=== PATIENT | female | born 1955 | race African-American/Black ===

== ENCOUNTER 2018-04-15 19:20 | Emergency (ER) | payer MEDICAID ==
[~2018-04-15] VITALS: Ht 160 cm; Wt 68.5 kg
[~2018-04-15 19:20] MED LIST: ASPI81CH43 PO; BENA20TA70 PO
[2018-04-15 19:32] VITALS: BP 129/80
[2018-04-15 20:08] LABS: Basophils # (auto) 0.1 uL; Eosinophils # (auto) 0.2 uL; Lymphocytes # (auto) 2.2 uL; Mean Corpuscular Hemoglobin 29.9 pg (28.0-32.0)
[2018-04-15 20:10] LABS: Basophils % (auto) 1.1 % (0.0-2.0); Eosinophils % (auto) 2.2 % (0.0-7.0); Hematocrit 32.6 % (36.0-46.0); Hemoglobin 11.1 g/dL (12.2-16.2); Lymphocytes % (auto) 23.7 % (10.0-50.0); Mean Corpuscular Hgb Conc. 33.9 g/dL (32.0-36.0); Mean Corpuscular Volume 88.1 fL (80.0-100.0); Monocytes # (auto) 0.4 uL; Monocytes % (auto) 4.4 % (0.0-12.0); Neutrophils # (auto) 6.4 uL; Neutrophils % (auto) 68.6 % (37.0-80.0); Nucleated Red Blood Cells % 0.2 %; Red Cell Distribution Width 14.5 % (11.8-14.3); White Blood Cell 9.4 10^3/uL (4.4-10.8)
[2018-04-15 20:17] LABS: Platelet Count (auto) 1087 10^3/uL (140-450)
[2018-04-15 20:25] LABS: Albumin 3.1 g/dL (3.4-5.0); BUN/Creatinine Ratio 8.2; Potassium 3.8 mmol/L (3.5-5.1)
[2018-04-15 20:38] LABS: Bilirubin, Total 0.2 mg/dL (0.2-1.0); Total Protein 6.8 g/dL (6.4-8.2)
== END 2018-04-15 23:04 | disposition left against medical advice (07) ==
LOC: ER 19:34
DX: R73.9 Hyperglycemia, unspecified (principal); Z53.21 Procedure and treatment not carried out due to patient leaving prior to being seen by health care provider
CPT/HCPCS: 36415; 80053; 85025

== ENCOUNTER 2018-07-10 21:17 | Inpatient (IN) | payer MEDICAID ==
[~2018-07-10] VITALS: Ht 160 cm; Wt 98.2 kg
[2018-07-10 22:25] LABS: Hematocrit 39.7 % (36.0-46.0); Hemoglobin 13.3 g/dL (12.2-16.2); Monocytes # (auto) 0.3 uL; Monocytes % (auto) 4.3 % (0.0-12.0); Nucleated Red Blood Cells % 0.1 %; Red Blood Cells 4.42 10^6/uL (4.0-5.20)
[2018-07-10 22:27] LABS: Basophils # (auto) 0 uL; Basophils % (auto) 0.6 % (0.0-2.0); Eosinophils # (auto) 0.1 uL; Eosinophils % (auto) 2.5 % (0.0-7.0); Lymphocytes # (auto) 2.4 uL; Lymphocytes % (auto) 40.4 % (10.0-50.0); Mean Corpuscular Hemoglobin 30.1 pg (28.0-32.0); Mean Corpuscular Hgb Conc. 33.5 g/dL (32.0-36.0); Neutrophils # (auto) 3.1 uL; Neutrophils % (auto) 52.2 % (37.0-80.0); Platelet Count (auto) 500 10^3/uL (140-450); White Blood Cell 5.9 10^3/uL (4.4-10.8)
[2018-07-10 22:30] LABS: Red Cell Distribution Width 23.7 % (11.8-14.3)
[2018-07-10 23:00] LABS: INR 0.96 (0.9-1.15); Partial Thromboplastin Time 26.5 sec (23.78-33.04); Prothrombin Time 10.3 sec (9.27-12.13)
[2018-07-11] MEDS ORDERED: GABAPENTIN 300 MG CAP PO ONE
[2018-07-11 00:14] LABS: Alanine Aminotransferase 24 U/L (13-56); Albumin 3.6 g/dL (3.4-5.0); Anion Gap 10 (5-15); Aspartate Aminotransferase 17 U/L (15-37); BUN/Creatinine Ratio 17.1; Blood Urea Nitrogen 20 mg/dL (7-18); Calcium 8.6 mg/dL (8.5-10.1); Carbon Dioxide 21 mmol/L (21-32); Chloride 108 mmol/L (98-107); GFR African American 60 mL/min; GFR Non-African American 50 mL/min; Glucose 177 mg/dL (74-106); Magnesium 1.7 mg/dL (1.6-2.6); Potassium 3.8 mmol/L (3.5-5.1); Sodium 139 mmol/L (136-145)
[2018-07-11 00:17] LABS: Alkaline Phosphatase 49 U/L (45-117); Bilirubin, Total 0.2 mg/dL (0.2-1.0); Total Protein 7.6 g/dL (6.4-8.2)
[2018-07-11] MEDS ORDERED: ONDANSETRON HCL 4 MG/2 ML VIAL IV PRN (04:30)
[2018-07-11] MEDS ORDERED: ACETAMINOPHEN 500 MG TAB PO PRN (04:30)
[2018-07-11] MEDS ORDERED: DEXTROSE (50%) 50ML SYRG IV PRN (04:30)
[2018-07-11] MEDS ORDERED: LORazepam 2MG/ML-1ML VIAL IV ONE (05:00)
[2018-07-11 05:23] LABS: Eosinophils # (auto) 0.1 uL; Lymphocytes # (auto) 1.7 uL; Monocytes # (auto) 0.3 uL; Monocytes % (auto) 4.4 % (0.0-12.0)
[2018-07-11 05:24] LABS: Basophils # (auto) 0.1 uL; Basophils % (auto) 0.7 % (0.0-2.0); Eosinophils % (auto) 1.1 % (0.0-7.0); Hematocrit 38.3 % (36.0-46.0); Hemoglobin 12.8 g/dL (12.2-16.2); Lymphocytes % (auto) 23.8 % (10.0-50.0); Mean Corpuscular Hemoglobin 30.3 pg (28.0-32.0); Mean Corpuscular Hgb Conc. 33.5 g/dL (32.0-36.0); Mean Corpuscular Volume 90.4 fL (80.0-100.0); Neutrophils # (auto) 5.1 uL; Platelet Count (auto) 440 10^3/uL (140-450); Red Blood Cells 4.24 10^6/uL (4.0-5.20); White Blood Cell 7.3 10^3/uL (4.4-10.8)
[2018-07-11] MEDS ORDERED: LORazepam 2MG/ML-1ML VIAL IV PRN (05:30)
[2018-07-11 05:43] LABS: BUN/Creatinine Ratio 20.8; Calcium 8.7 mg/dL (8.5-10.1); Potassium 5.1 mmol/L (3.5-5.1)
[2018-07-11] MEDS: ACCU-CHEK COMFORT CURVE STRIP VI SCH ×4 (07:00→21:58)
[2018-07-11] MEDS: InsuLIN REG 1unit/0.01ml Soln (100units/ml) SC SCH ×4 (07:00→21:58)
[2018-07-11 09:07] LABS: Urine WBC None Seen /hpf (0 - 5)
[2018-07-11 09:34] LABS: Urine Bacteria NONE SEEN /hpf (None Seen); Urine Blood Negative /uL (Negative); Urine Specific Gravity 1.009 (1.001-1.035)
[2018-07-11] MEDS: BENAZEPRIL HCL 10 MG TAB PO SCH (09:50)
[2018-07-11] MEDS: FAMOTIDINE 20 MG TAB PO SCH (09:50)
[2018-07-11 09:59] LABS: Amphetamine Screen, Urine NEGATIVE (NEGATIVE); Barbiturate Scree,Urine NEGATIVE (NEGATIVE); Benzodiazephine Screen, Urine NEGATIVE (NEGATIVE); Cocaine Screen, Urine NEGATIVE (NEGATIVE); Opiate Scree,Urine NEGATIVE (NEGATIVE); Phencyclidine Screen, Urine NEGATIVE (NEGATIVE)
[2018-07-11] MEDS ORDERED: ASPirin-EC 81 mg tab PO SCH (10:00)
[2018-07-11 10:12] LABS: Cannabinoid Screen, Urine POSITIVE (NEGATIVE)
[2018-07-11] MEDS: HYDROcodone-ACET 5/325MG TAB PO PRN ×2 (10:51→20:26)
[2018-07-11] MEDS ORDERED: SODIUM CHLORIDE 0.9% 1,000 ML IV ONE (13:45)
[2018-07-11 17:00] VITALS: BP 107/64
--- NOTE | 2018-07-11 17:05 | NUR ---
Med Surg admit from [facility] admitted to Med Surg unit after SBAR received. Patient oriented to Lexie Watters RN, unit, room, bed, and unit policies regarding patient care and visiting hours. Patient placed on bedside oxygen when needed, weighed by bed scale and encouraged to call if she needs something. All questions and concerns addressed, patient verbalized understanding. Note: Patient is alert, oriented x4. No acute distress noted.
[2018-07-11] MEDS: guaiFENesin-DM 100/10mg/5ml SYR PO PRN (17:26)
[2018-07-11] MEDS: RIVAROXABAN 20 MG TAB PO SCH (17:29)
--- NOTE | 2018-07-11 17:29 | NUR ---
Patient refused the Xarelto, stated she had it this morning.
[2018-07-11] MEDS ORDERED: HYDR-4683 PO (17:45)
[2018-07-11] MEDS ORDERED: RIVA20TA PO (17:45)
[2018-07-11] MEDS ORDERED: GABA300C10 PO (17:45)
[2018-07-11] MEDS ORDERED: RIVAROXABAN 20 MG TAB PO SCH (18:00)
[2018-07-11 20:00] VITALS: BP 126/71
[2018-07-11 22:00] VITALS: BP 126/71
[2018-07-11] MEDS ORDERED: ATORVASTATIN 20 MG TAB PO SCH (22:00)
[2018-07-12 05:00] VITALS: BP 154/84
[2018-07-12] MEDS: InsuLIN REG 1unit/0.01ml Soln (100units/ml) SC SCH ×3 (06:05→17:35)
[2018-07-12] MEDS: ACCU-CHEK COMFORT CURVE STRIP VI SCH ×3 (06:06→17:48)
[2018-07-12 07:07] LABS: Basophils # (auto) 0 uL; Basophils % (auto) 0.8 % (0.0-2.0); Eosinophils # (auto) 0.2 uL; Eosinophils % (auto) 3.1 % (0.0-7.0); Hematocrit 38.2 % (36.0-46.0); Hemoglobin 12.8 g/dL (12.2-16.2); Lymphocytes # (auto) 2.3 uL; Lymphocytes % (auto) 39.1 % (10.0-50.0); Mean Corpuscular Hemoglobin 30.4 pg (28.0-32.0); Mean Corpuscular Hgb Conc. 33.5 g/dL (32.0-36.0); Mean Corpuscular Volume 90.7 fL (80.0-100.0); Monocytes # (auto) 0.3 uL; Monocytes % (auto) 4.6 % (0.0-12.0); Neutrophils % (auto) 52.4 % (37.0-80.0); Platelet Count (auto) 466 10^3/uL (140-450); Red Blood Cells 4.21 10^6/uL (4.0-5.20); White Blood Cell 5.8 10^3/uL (4.4-10.8)
[2018-07-12 07:12] LABS: Red Cell Distribution Width 23.8 % (11.8-14.3)
[2018-07-12 07:15] LABS: Anion Gap 7 (5-15); BUN/Creatinine Ratio 23.1; Blood Urea Nitrogen 24 mg/dL (7-18); Calcium 8.7 mg/dL (8.5-10.1); Carbon Dioxide 22 mmol/L (21-32); Chloride 112 mmol/L (98-107); GFR Non-African American 57 mL/min; Glucose 105 mg/dL (74-106); Potassium 3.8 mmol/L (3.5-5.1); Sodium 141 mmol/L (136-145)
[2018-07-12 07:18] LABS: GFR African American > 60 mL/min
--- NOTE | 2018-07-12 08:05 | NUR ---
Opening Shift Note Assumed care of patient, awake and alert and oriented. No S/S of distress/SOB or pain. Instructed on POC and to call for assist PRN, will continue to monitor for changes.
[2018-07-12] MEDS: HYDROcodone-ACET 5/325MG TAB PO PRN ×2 (09:13→15:59)
[2018-07-12] MEDS: FAMOTIDINE 20 MG TAB PO SCH (09:14)
[2018-07-12] MEDS: BENAZEPRIL HCL 10 MG TAB PO SCH (09:14)
[2018-07-12 11:53] VITALS: BP 153/88
--- NOTE | 2018-07-12 12:10 | NUR ---
Dr Rubin at nursing station and made aware that attempted to make appt for pt for orthopedic spine MD. Yet unable to because patient needs authorization and referral from PCP. Per Dr Ibarra ok for patient to be D/C wiothout appt, pt to make own appt. Yet patient 1st needs to be cleared by Dr Fields prior D/C.
--- NOTE | 2018-07-12 12:30 | NUR ---
Attempted IV restart, yet unsuccessful. Patient requested to attempt later today only if she is not D/C. Patient pending neuro clearance for D/C. Will continue to monitor.
[2018-07-12] MEDS ORDERED: ATOR20TA50 PO (13:06)
[2018-07-12] MEDS ORDERED: BEN10T PO (13:06)
--- NOTE | 2018-07-12 15:55 | NUR ---
Dr Fields was paged and made aware that per Dr Rubin need clearance from him for D/C. Per Dr Fields will come and see patient later.
[2018-07-12] MEDS: guaiFENesin-DM 100/10mg/5ml SYR PO PRN (16:13)
[2018-07-12 17:15] VITALS: BP 152/88
[2018-07-12] MEDS: RIVAROXABAN 20 MG TAB PO SCH (17:50)
--- NOTE | 2018-07-12 18:50 | NUR ---
Patient care and report handed off to Moreno NYE. Made aware that patient is still pending D/C clearance by Dr Fields. Also made Moreno aware to page Dr Rubin to see if home mealth was set up. Moreno stated understanding.
--- NOTE | 2018-07-12 19:09 | NUR ---
Dr Fields at nursing station. Per Dr Fields patient cleared for D/C. Made Moreno NYE aware.
[2018-07-12 20:01] VITALS: BP 155/82
--- NOTE | 2018-07-12 20:46 | NUR ---
patient discharged home with spouse
== END 2018-07-12 20:40 | disposition home health service (06) | DRG 47 ==
LOC: ER 21:20 → OVERFLOW 07-11 04:46 → WEST WING 07-11 17:02
PROVIDERS: ADMIT Nurse Practitioner Family; ATTEND Internal Medicine
DX: G45.9 Transient cerebral ischemic attack, unspecified (principal); G92 Toxic encephalopathy; E11.22 Type 2 diabetes mellitus with diabetic chronic kidney disease; E11.51 Type 2 diabetes mellitus with diabetic peripheral angiopathy without gangrene; R56.9 Unspecified convulsions; I13.0 Hypertensive heart and chronic kidney disease with heart failure and stage 1 through stage 4 chronic kidney disease, or unspecified chronic kidney disease; E78.5 Hyperlipidemia, unspecified; F17.200 Nicotine dependence, unspecified, uncomplicated; G89.4 Chronic pain syndrome; I25.10 Atherosclerotic heart disease of native coronary artery without angina pectoris; I50.9 Heart failure, unspecified; J44.9 Chronic obstructive pulmonary disease, unspecified; N18.9 Chronic kidney disease, unspecified; Z79.82 Long term (current) use of aspirin; Z79.899 Other long term (current) drug therapy; Z80.1 Family history of malignant neoplasm of trachea, bronchus and lung; Z80.41 Family history of malignant neoplasm of ovary; Z80.3 Family history of malignant neoplasm of breast; Z80.8 Family history of malignant neoplasm of other organs or systems; Z79.01 Long term (current) use of anticoagulants; Z80.0 Family history of malignant neoplasm of digestive organs; Z81.8 Family history of other mental and behavioral disorders; Z82.3 Family history of stroke; Z82.49 Family history of ischemic heart disease and other diseases of the circulatory system; Z82.0 Family history of epilepsy and other diseases of the nervous system; Z82.5 Family history of asthma and other chronic lower respiratory diseases; Z82.62 Family history of osteoporosis; Z83.3 Family history of diabetes mellitus; Z86.711 Personal history of pulmonary embolism
CPT/HCPCS: 36415; 70450; 70551; 71045; 72131; 72148; 80048; 80053; 80307; 80320; 80329; 81001; 82962; 83735; 84484; 85025; 85379; 85610; 85730; 93005; 95819; 97163; G0378; J1815

== ENCOUNTER 2020-01-09 19:15 | Emergency (ER) | payer MEDICAID ==
[~2020-01-09] VITALS: Ht 167.6 cm; Wt 68.0 kg
[~2020-01-09 19:15] MED LIST changes: +AML5T PO; -ASPI81CH43 PO; +ATOR20TA50 PO; +BENA10TA10 GT; +BENA10TA10 PO; -BENA20TA70 PO; +GABA300C10 PO; +GLIP5TAB12 PO; +HYDR-4833 PO; +OME20T PO; +RIVA20TA PO
[2020-01-09] MEDS ORDERED: SODIUM CHLORIDE 0.9% 1,000 ML IVB ONE (19:23)
[2020-01-09] MEDS ORDERED: PANTOPRAZOLE 40 MG/10 ML VIAL INJ IV ONE (19:30)
[2020-01-09 20:37] LABS: Basophils # (auto) 0 10 ^3/uL (0-0.2); Eosinophils # (auto) 0 10 ^3/uL (0-0.8); Hemoglobin 12.2 g/dL (12.2-16.2); Lymphocytes # (auto) 1.2 10 ^3/uL (0.4-5.4)
[2020-01-09 20:42] LABS: Basophils % (auto) 0.2 % (0.0-2.0); Eosinophils % (auto) 0.4 % (0.0-7.0); Hematocrit 36.4 % (36.0-46.0); Mean Corpuscular Hemoglobin 38.4 pg (28.0-32.0); Mean Corpuscular Hgb Conc. 33.6 g/dL (32.0-36.0); Mean Corpuscular Volume 114.3 fL (80.0-100.0); Monocytes # (auto) 0.1 10 ^3/uL (0-1.3); Monocytes % (auto) 0.7 % (0.0-12.0); Neutrophils # (auto) 8.4 10 ^3/uL (1.6-8.6); Neutrophils % (auto) 86.7 % (37.0-80.0); Platelet Count (auto) 156 10^3/uL (140-450); Red Blood Cells 3.19 10^6/uL (4.0-5.20); Red Cell Distribution Width 16.6 % (11.8-14.3); White Blood Cell 9.7 10^3/uL (4.4-10.8)
[2020-01-09 20:55] LABS: Alanine Aminotransferase 23 U/L (13-56); Albumin 3.7 g/dL (3.4-5.0); Anion Gap 12 (5-15); Aspartate Aminotransferase 12 U/L (15-37); BUN/Creatinine Ratio 23.6; Blood Urea Nitrogen 29 mg/dL (7-18); Carbon Dioxide 19 mmol/L (21-32); Chloride 103 mmol/L (98-107); GFR African American 57 mL/min; GFR Non-African American 47 mL/min; Glucose 229 mg/dL (74-106); Magnesium 1.8 mg/dL (1.6-2.6); Potassium 3.6 mmol/L (3.5-5.1); Sodium 134 mmol/L (136-145)
[2020-01-09 21:07] LABS: Alkaline Phosphatase 84 U/L (45-117); Bilirubin, Total 1.1 mg/dL (0.2-1.0); Total Protein 7.8 g/dL (6.4-8.2)
[2020-01-09 21:45] VITALS: BP 124/77
== END 2020-01-09 22:35 | disposition other institution (70) ==
LOC: ER 19:15 → EDBD 19:15 → ER 22:35
DX: I24.9 Acute ischemic heart disease, unspecified (principal); C56.9 Malignant neoplasm of unspecified ovary; F17.210 Nicotine dependence, cigarettes, uncomplicated; I11.0 Hypertensive heart disease with heart failure; I50.9 Heart failure, unspecified; E11.9 Type 2 diabetes mellitus without complications; E78.5 Hyperlipidemia, unspecified; F12.10 Cannabis abuse, uncomplicated; Z90.49 Acquired absence of other specified parts of digestive tract; Z79.899 Other long term (current) drug therapy
CPT/HCPCS: 36415; 71045; 80053; 83735; 83880; 84484; 85025; 93005; 96374; 99285; C9113

== ENCOUNTER 2020-07-12 18:16 | Inpatient (IN) | payer MEDICAID ==
[~2020-07-12] VITALS: Ht 160 cm; Wt 61.3 kg
[~2020-07-12 18:16] MED LIST changes: -BENA10TA10 GT; -BENA10TA10 PO; +BENA10TA14 GT; +BENA10TA14 PO
[2020-07-12] MEDS ORDERED: ACCU-CHEK COMFORT CURVE STRIP VI ONE (19:00)
[2020-07-12 20:51] LABS: Basophils # (auto) 0 10 ^3/uL (0-0.2); Eosinophils # (auto) 0 10 ^3/uL (0-0.8); Hemoglobin 11.9 g/dL (12.2-16.2); Lymphocytes # (auto) 1.5 10 ^3/uL (0.4-5.4); Monocytes % (auto) 0.9 % (0.0-12.0)
[2020-07-12 20:54] LABS: Basophils % (auto) 0.2 % (0.0-2.0); Hematocrit 37.2 % (36.0-46.0); Lymphocytes % (auto) 5.3 % (10.0-50.0); Mean Corpuscular Hemoglobin 26.1 pg (28.0-32.0); Mean Corpuscular Hgb Conc. 31.9 g/dL (32.0-36.0); Mean Corpuscular Volume 81.7 fL (80.0-100.0); Monocytes # (auto) 0.2 10 ^3/uL (0-1.3); Neutrophils # (auto) 26.4 10 ^3/uL (1.6-8.6); Neutrophils % (auto) 93.6 % (37.0-80.0); Nucleated Red Blood Cells % 0.1 %; Red Blood Cells 4.56 10^6/uL (4.0-5.20); White Blood Cell 28.2 10^3/uL (4.4-10.8)
[2020-07-12 21:09] LABS: Albumin 3.8 g/dL (3.4-5.0); Anion Gap 9 (5-15); Blood Urea Nitrogen 28 mg/dL (7-18); Calcium 8.5 mg/dL (8.5-10.1); Carbon Dioxide 20 mmol/L (21-32); Chloride 108 mmol/L (98-107); Glucose 166 mg/dL (74-106); Potassium 3.6 mmol/L (3.5-5.1); Sodium 137 mmol/L (136-145)
[2020-07-12 21:13] LABS: INR 1.37 (0.9-1.15); Partial Thromboplastin Time 34.6 sec (23.0-31.2)
[2020-07-12 21:19] LABS: Alanine Aminotransferase 29 U/L (13-56); Alkaline Phosphatase 89 U/L (45-117); Aspartate Aminotransferase 13 U/L (15-37); Bilirubin, Total 0.2 mg/dL (0.2-1.0); GFR African American 46 mL/min; GFR Non-African American 38 mL/min; Total Protein 7.9 g/dL (6.4-8.2)
[2020-07-12 21:41] LABS: BUN/Creatinine Ratio 19.2
[2020-07-13 00:34] VITALS: BP 162/86
[2020-07-13] MEDS ORDERED: DOXYCYCLINE 100MG/250ML 250 ML IV ONE (01:45)
[2020-07-13] MEDS ORDERED: DexAMETHasone SOD PHOS 10MG/1ML VIAL INJ IV ONE (01:45)
[2020-07-13] MEDS ORDERED: DEXTROSE (50%) 50ML SYRG IV PRN (04:45)
[2020-07-13] MEDS ORDERED: HYDROcodone-ACET 5/325MG TAB PO PRN (06:45)
[2020-07-13] MEDS: ACCU-CHEK COMFORT CURVE STRIP VI SCH ×4 (06:45→23:38)
[2020-07-13] MEDS: InsuLIN REG 1unit/0.01ml Soln (100units/ml) SC SCH ×4 (06:49→23:39)
[2020-07-13] MEDS ORDERED: ACCU-CHEK COMFORT CURVE STRIP VI SCH (07:00)
[2020-07-13 07:02] LABS: Hemoglobin 11.1 g/dL (12.2-16.2); Mean Corpuscular Hemoglobin 26.1 pg (28.0-32.0); Mean Corpuscular Hgb Conc. 32.7 g/dL (32.0-36.0); Mean Corpuscular Volume 79.7 fL (80.0-100.0); Red Blood Cells 4.26 10^6/uL (4.0-5.20); Red Cell Distribution Width 18.4 % (11.8-14.3); White Blood Cell 26.6 10^3/uL (4.4-10.8)
[2020-07-13 07:06] LABS: Basophils % (manual) 0 (0.0-2.0); Blast Cells 0; Eosinophils % (manual) 0 (0-7); Promyelocytes % 0
[2020-07-13 07:13] LABS: Anion Gap 8 (5-15); BUN/Creatinine Ratio 19.5; Blood Urea Nitrogen 24 mg/dL (7-18); Carbon Dioxide 20 mmol/L (21-32); Chloride 108 mmol/L (98-107); GFR African American 57 mL/min; GFR Non-African American 47 mL/min; Glucose 249 mg/dL (74-106); Potassium 4.1 mmol/L (3.5-5.1); Sodium 136 mmol/L (136-145)
[2020-07-13 08:53] LABS: Band Neutrophils % (manual) 9; Lymphocytes % (manual) 2 (10.0-50.0); Metamyelocytes % 6; Monocytes % (manual) 1 (0-12); Myelocytes % 10; Reactive Lymphocytes 1
[2020-07-13] MEDS: CHOLECALCIFEROL (VITD3) 2,000 UNIT CAP/TAB PO SCH (09:03)
[2020-07-13] MEDS ORDERED: ZINC SULFATE 220mg CAP or TAB PO SCH (10:00)
[2020-07-13] MEDS ORDERED: cefTRIAXone 1GM/50ML D5W 50 ML IV SCH (10:00)
[2020-07-13] MEDS ORDERED: ASCORBIC ACID 500 MG TAB PO SCH (10:00)
[2020-07-13] MEDS ORDERED: AZITHROMYCIN 500MG/ 250ML 250 ML IV SCH (10:00)
[2020-07-13] MEDS: hydrALAZINE HCL 20 MG/ML VL IV PRN (11:24)
[2020-07-13] MEDS ORDERED: hydrALAZINE HCL 20 MG/ML VL IV PRN (12:45)
[2020-07-13] MEDS ORDERED: SOD CHL 0.45% 1,000 ML IV SCH (12:45)
[2020-07-13] MEDS ORDERED: REMDESIVIR PER PHARMACY 0 ML IV SCH (12:45)
[2020-07-13] MEDS ORDERED: ALUM & MAG HYDROX-SIMETH LIQ(MAALOX) 30 ML PO PRN (12:45)
[2020-07-13] MEDS: metroNIDAZOLE 500MG/100ML 100 ML IV SCH ×2 (14:00→23:37)
[2020-07-13] MEDS ORDERED: DONNATAL 5ml ORAL Elix (BELLADONNA ALK-PHENOBARB) PO ONE (14:55)
[2020-07-13] MEDS ORDERED: LIDOCAINE VISCOUS 2% 15ML UD PO ONE (14:55)
[2020-07-13] MEDS: HYDROcodone-ACET 5/325MG TAB PO SCH ×2 (16:01→22:00)
[2020-07-13] MEDS: DOXYCYCLINE 100MG/250ML 250 ML IV SCH (16:01)
[2020-07-13] MEDS: GABAPENTIN 300 MG CAP PO SCH (23:37)
[2020-07-13] MEDS: FAMOTIDINE 20 MG TAB PO SCH (23:38)
[2020-07-14] VITALS: BP 162/86
[2020-07-14] MEDS: DOXYCYCLINE 100MG/250ML 250 ML IV SCH ×2 (00:54→17:34)
[2020-07-14] MEDS: hydrALAZINE HCL 20 MG/ML VL IV PRN (00:54)
[2020-07-14] MEDS ORDERED: MORPHINE SULFATE INJECTION 2 MG/ML SYRG IV ONE (02:00)
[2020-07-14] MEDS: ACCU-CHEK COMFORT CURVE STRIP VI SCH ×4 (06:37→22:31)
[2020-07-14] MEDS: InsuLIN REG 1unit/0.01ml Soln (100units/ml) SC SCH ×4 (06:40→22:00)
[2020-07-14] MEDS: metroNIDAZOLE 500MG/100ML 100 ML IV SCH ×3 (06:41→22:38)
[2020-07-14] MEDS: HYDROcodone-ACET 5/325MG TAB PO SCH ×3 (06:46→21:27)
[2020-07-14 07:29] LABS: Hematocrit 34.1 % (36.0-46.0); Hemoglobin 11.3 g/dL (12.2-16.2); Mean Corpuscular Volume 78.9 fL (80.0-100.0); Red Blood Cells 4.33 10^6/uL (4.0-5.20); Red Cell Distribution Width 18.2 % (11.8-14.3); White Blood Cell 26.7 10^3/uL (4.4-10.8)
[2020-07-14 07:52] LABS: Albumin 3.6 g/dL (3.4-5.0); BUN/Creatinine Ratio 18.5; Bilirubin, Total 0.8 mg/dL (0.2-1.0); Total Protein 7.4 g/dL (6.4-8.2)
[2020-07-14 08:00] VITALS: BP 151/85
[2020-07-14 08:01] LABS: Basophils % (manual) 0 (0.0-2.0); Blast Cells 0; Promyelocytes % 0; Reactive Lymphocytes 0
[2020-07-14 08:09] LABS: Potassium 2.9 mmol/L (3.5-5.1)
[2020-07-14] MEDS: LACTATED RINGER'S 1,000 ML IV SCH ×2 (08:45→22:37)
[2020-07-14] MEDS: POTASSIUM CHL 20MEQ/100ML 100 ML IV SCH ×3 (09:26→12:45)
[2020-07-14] MEDS: CHOLECALCIFEROL (VITD3) 2,000 UNIT CAP/TAB PO SCH (09:27)
[2020-07-14] MEDS: amLODIPine BESYLATE 5 MG TAB PO SCH (09:28)
[2020-07-14] MEDS: GABAPENTIN 300 MG CAP PO SCH ×2 (09:28→22:37)
[2020-07-14] MEDS: ATORVASTATIN 20 MG TAB PO SCH (09:28)
[2020-07-14] MEDS: BENAZEPRIL HCL 10 MG TAB PO SCH (09:29)
[2020-07-14] MEDS: RIVAROXABAN 20 MG TAB PO SCH (09:30)
[2020-07-14] MEDS: MORPHINE SULF 15mg ER tab PO SCH ×2 (09:51→22:38)
[2020-07-14] MEDS ORDERED: DexAMETHasone SOD PHOS 10MG/1ML VIAL INJ IV SCH (10:00)
[2020-07-14] MEDS: ALBUTEROL SULF HFA 90MCG INH 200DOSE IN PRN ×2 (10:06→22:36)
[2020-07-14 11:01] LABS: Band Neutrophils % (manual) 12; Eosinophils % (manual) 1 (0-7); Lymphocytes % (manual) 14 (10.0-50.0); Metamyelocytes % 2; Monocytes % (manual) 1 (0-12); Myelocytes % 1
[2020-07-14] MEDS ORDERED: POTASSIUM EFFERVESENT TAB 25 MEQ PO ONE ×2 (14:15→19:12)
[2020-07-14 16:00] VITALS: BP 107/68
[2020-07-14] MEDS: FAMOTIDINE 20 MG TAB PO SCH (22:37)
[2020-07-15] VITALS: BP 83/58
[2020-07-15] MEDS: DOXYCYCLINE 100MG/250ML 250 ML IV SCH ×2 (01:00→13:43)
[2020-07-15] MEDS ORDERED: SODIUM CHLORIDE 0.9% 500 ML IV ONE ×2 (02:30→06:00)
[2020-07-15] MEDS: HYDROcodone-ACET 5/325MG TAB PO SCH ×2 (06:00→14:33)
[2020-07-15] MEDS: ACCU-CHEK COMFORT CURVE STRIP VI SCH ×2 (06:42→12:35)
[2020-07-15] MEDS: metroNIDAZOLE 500MG/100ML 100 ML IV SCH ×2 (06:42→14:32)
[2020-07-15] MEDS: InsuLIN REG 1unit/0.01ml Soln (100units/ml) SC SCH ×2 (06:43→11:30)
[2020-07-15 08:00] VITALS: BP 100/64
[2020-07-15 09:08] LABS: Hemoglobin 10.9 g/dL (12.2-16.2); Red Cell Distribution Width 18.3 % (11.8-14.3)
[2020-07-15 09:10] LABS: Hematocrit 34.2 % (36.0-46.0); Mean Corpuscular Hemoglobin 25.3 pg (28.0-32.0); Red Blood Cells 4.33 10^6/uL (4.0-5.20); White Blood Cell 16.6 10^3/uL (4.4-10.8)
[2020-07-15 09:13] LABS: Basophils % (manual) 0 (0.0-2.0); Metamyelocytes % 0; Myelocytes % 0
[2020-07-15 09:14] LABS: Blast Cells 0; Promyelocytes % 0; Reactive Lymphocytes 0
[2020-07-15 09:37] LABS: BUN/Creatinine Ratio 15.8; Calcium 8.9 mg/dL (8.5-10.1); Magnesium 1.5 mg/dL (1.6-2.6); Potassium 3.7 mmol/L (3.5-5.1)
[2020-07-15] MEDS ORDERED: FAMOTIDINE 20 MG TAB PO SCH (10:00)
[2020-07-15] MEDS: BENAZEPRIL HCL 10 MG TAB PO SCH (10:00)
[2020-07-15] MEDS: amLODIPine BESYLATE 5 MG TAB PO SCH (10:00)
[2020-07-15] MEDS ORDERED: FAMOTIDINE 20 MG TAB PO ONE (10:00)
[2020-07-15] MEDS: MORPHINE SULF 15mg ER tab PO SCH (10:12)
[2020-07-15] MEDS: ATORVASTATIN 20 MG TAB PO SCH (10:12)
[2020-07-15] MEDS: GABAPENTIN 300 MG CAP PO SCH (10:14)
[2020-07-15] MEDS: RIVAROXABAN 20 MG TAB PO SCH (10:16)
[2020-07-15] MEDS: CHOLECALCIFEROL (VITD3) 2,000 UNIT CAP/TAB PO SCH (10:16)
[2020-07-15] MEDS: ALBUTEROL SULF HFA 90MCG INH 200DOSE IN PRN (10:21)
[2020-07-15] MEDS: LACTATED RINGER'S 1,000 ML IV SCH (12:35)
[2020-07-15 12:51] LABS: Band Neutrophils % (manual) 16; Eosinophils % (manual) 1 (0-7); Lymphocytes % (manual) 12 (10.0-50.0); Monocytes % (manual) 1 (0-12)
[2020-07-15] MEDS ORDERED: POTASSIUM EFFERVESENT TAB 25 MEQ PO ONE (15:00)
[2020-07-15] MEDS: MAGNESIUM SULFATE 1GM/100ML 100 ML IV SCH ×2 (15:56→17:00)
[2020-07-15 16:00] VITALS: BP 102/67
[2020-07-15] MEDS ORDERED: METR500T PO (17:42)
== END 2020-07-15 19:00 | disposition home or self-care (01) | DRG 137 ==
LOC: EDUNIT# 18:16 → EDBD 18:16 → ER 18:16 → TELE 18:17 → TELE-WESTW 07-13 22:30
PROVIDERS: ADMIT Hospitalist; ATTEND Hospitalist
DX: U07.1 COVID-19 (principal); J12.82 Pneumonia due to coronavirus disease 2019; J96.01 Acute respiratory failure with hypoxia; N18.6 End stage renal disease; D72.829 Elevated white blood cell count, unspecified; Z99.2 Dependence on renal dialysis; I88.0 Nonspecific mesenteric lymphadenitis; J98.11 Atelectasis; G89.29 Other chronic pain; E11.22 Type 2 diabetes mellitus with diabetic chronic kidney disease; E78.5 Hyperlipidemia, unspecified; F17.210 Nicotine dependence, cigarettes, uncomplicated; I13.2 Hypertensive heart and chronic kidney disease with heart failure and with stage 5 chronic kidney disease, or end stage renal disease; I25.10 Atherosclerotic heart disease of native coronary artery without angina pectoris; I50.9 Heart failure, unspecified; J43.2 Centrilobular emphysema; A04.72 Enterocolitis due to Clostridium difficile, not specified as recurrent; J43.8 Other emphysema; K40.20 Bilateral inguinal hernia, without obstruction or gangrene, not specified as recurrent; Z79.01 Long term (current) use of anticoagulants; Z80.1 Family history of malignant neoplasm of trachea, bronchus and lung; Z80.3 Family history of malignant neoplasm of breast; Z80.41 Family history of malignant neoplasm of ovary; Z80.8 Family history of malignant neoplasm of other organs or systems; Z81.8 Family history of other mental and behavioral disorders; Z82.0 Family history of epilepsy and other diseases of the nervous system; Z82.3 Family history of stroke; Z82.49 Family history of ischemic heart disease and other diseases of the circulatory system; Z82.5 Family history of asthma and other chronic lower respiratory diseases; Z83.3 Family history of diabetes mellitus; Z82.62 Family history of osteoporosis; Z85.43 Personal history of malignant neoplasm of ovary; Z79.84 Long term (current) use of oral hypoglycemic drugs; J20.9 Acute bronchitis, unspecified; Z86.711 Personal history of pulmonary embolism; I95.9 Hypotension, unspecified; E86.1 Hypovolemia
CPT/HCPCS: 36415; 70450; 71250; 74176; 80048; 80053; 80320; 82962; 83605; 83735; 83880; 84443; 84484; 85007; 85025; 85027; 85048; 85379; 85610; 85730; 87040; 87045; 87426; 87427; 87493; 93005; 93306; 93970; 94640; 96365; 96366; 96375; G0378; J0696; J1100; J1815; J3480; J3490

== ENCOUNTER 2020-12-12 13:15 | Inpatient (IN) | payer MEDICARE, MEDICAID ==
[~2020-12-12] VITALS: Ht 160 cm; Wt 72.3 kg
[~2020-12-12 13:15] MED LIST changes: -BENA10TA14 GT; +METR500T PO
[2020-12-12] MEDS ORDERED: SODIUM CHLORIDE 0.9% 500 ML IV ONE (13:30)
[2020-12-12 13:50] LABS: Basophils # (auto) 0 10 ^3/uL (0-0.2); Eosinophils # (auto) 0 10 ^3/uL (0-0.8); Neutrophils # (auto) 1.3 10 ^3/uL (1.6-8.6)
[2020-12-12 13:52] LABS: Eosinophils % (auto) 0.6 % (0.0-7.0); Hematocrit 16.8 % (36.0-46.0); Lymphocytes # (auto) 1.3 10 ^3/uL (0.4-5.4); Lymphocytes % (auto) 44.3 % (10.0-50.0); Mean Corpuscular Hemoglobin 46.3 pg (28.0-32.0); Mean Corpuscular Hgb Conc. 35.3 g/dL (32.0-36.0); Mean Corpuscular Volume 131.4 fL (80.0-100.0); Monocytes # (auto) 0.3 10 ^3/uL (0-1.3); Neutrophils % (auto) 45.1 % (37.0-80.0); Nucleated Red Blood Cells % 2.2 %; Red Blood Cells 1.28 10^6/uL (4.0-5.20); Red Cell Distribution Width 19.1 % (11.8-14.3)
[2020-12-12 13:55] LABS: Hemoglobin 5.9 g/dL (12.2-16.2)
[2020-12-12 14:04] LABS: Anion Gap 10 (5-15); Blood Urea Nitrogen 13 mg/dL (7-18); Carbon Dioxide 18 mmol/L (21-32); Chloride 110 mmol/L (98-107); Glucose 151 mg/dL (74-106); Magnesium 1.6 mg/dL (1.6-2.6); Potassium 3.8 mmol/L (3.5-5.1); Sodium 138 mmol/L (136-145)
[2020-12-12 14:14] LABS: Alanine Aminotransferase 14 U/L (13-56); Alkaline Phosphatase 55 U/L (45-117); Aspartate Aminotransferase 14 U/L (15-37); BUN/Creatinine Ratio 7.8; Bilirubin, Total 0.6 mg/dL (0.2-1.0); GFR African American 40 mL/min; GFR Non-African American 33 mL/min; Total Protein 7.1 g/dL (6.4-8.2)
[2020-12-12] MEDS ORDERED: LORazepam 0.5 MG TAB PO PRN (15:00)
[2020-12-12] MEDS ORDERED: ONDANSETRON HCL 4 MG/2 ML VIAL IV PRN (15:00)
[2020-12-12] MEDS ORDERED: DOCUSATE CALCIUM 240 MG CAP PO PRN (15:00)
[2020-12-12] MEDS ORDERED: NITROGLYCERIN 0.4 MG SL TAB SL PRN (15:00)
[2020-12-12] MEDS ORDERED: IPRATROPIUM BROM 0.5 MG/2.5ML INH SOL NEB PRN (15:00)
[2020-12-12] MEDS ORDERED: LABETALOL HCL 5 MG/ML 4ML SYRINGE IV PRN (15:00)
[2020-12-12] MEDS ORDERED: DEXTROSE (50%) 50ML SYRG IV PRN (15:00)
[2020-12-12] MEDS ORDERED: MORPHINE SULF INJ 2 MG/ML SYRINGE 1ML IV PRN ×2 (15:00)
[2020-12-12 15:47] VITALS: BP 123/71
[2020-12-12] MEDS: InsuLIN REG 1unit/0.01ml Soln (100units/ml) SC SCH ×2 (16:30→20:00)
[2020-12-12] MEDS: ACCU-CHEK COMFORT CURVE STRIP VI SCH ×2 (16:30→20:00)
[2020-12-12 17:05] VITALS: BP 123/73
[2020-12-12] MEDS: PIPERACILLIN-TAZOB 2.25GM 50 ML IV SCH (18:00)
[2020-12-12 18:45] VITALS: BP 128/63
[2020-12-12 19:59] VITALS: BP 126/71
[2020-12-12 21:42] VITALS: BP 155/87
[2020-12-12] MEDS ORDERED: diphenhdrAMINE HCL 50 MG/1 ML VL ONE (21:59)
[2020-12-12 22:00] VITALS: BP 158/77
[2020-12-12] MEDS: INSULIN LANTUS (GLARGINE) 1 /0.01ml (100units/ml) SC SCH (22:00)
[2020-12-12] MEDS ORDERED: diphenhdrAMINE HCL 50 MG/1 ML VL IV ONE (22:15)
[2020-12-12] MEDS: BUDESONIDE (INHALATION) 0.5 MG/2 ML NEB NEB SCH (22:15)
[2020-12-12] MEDS: ALBUTEROL SULF 2.5 MG/0.5ML(0.5%) NEB SOLN NEB PRN (22:15)
[2020-12-13] MEDS: ACETAMINOPHEN 500 MG TAB PO PRN ×2 (00:02→08:49)
[2020-12-13 00:59] LABS: Hematocrit 23.3 % (36.0-46.0)
[2020-12-13] MEDS: InsuLIN REG 1unit/0.01ml Soln (100units/ml) SC SCH ×6 (04:00→20:00)
[2020-12-13] MEDS: ACCU-CHEK COMFORT CURVE STRIP VI SCH ×6 (04:19→20:00)
[2020-12-13 05:00] VITALS: BP 159/86
[2020-12-13] MEDS ORDERED: ONDA-144 PO (05:35)
[2020-12-13] MEDS ORDERED: DOCU100T15 PO (05:37)
[2020-12-13] MEDS ORDERED: ALLO300T2 PO (05:38)
[2020-12-13] MEDS ORDERED: BENA5TAB5 PO (05:39)
[2020-12-13] MEDS ORDERED: SENN8.6C PO (05:40)
[2020-12-13] MEDS ORDERED: CHOL20007 PO (05:41)
[2020-12-13] MEDS ORDERED: HYD500C PO (05:43)
[2020-12-13] MEDS ORDERED: OLAP100T PO (05:44)
[2020-12-13] MEDS ORDERED: diphenhdrAMINE HCL 50 MG/1 ML VL IV PRN (06:00)
[2020-12-13] MEDS: PIPERACILLIN-TAZOB 2.25GM 50 ML IV SCH ×5 (06:11→23:39)
[2020-12-13 06:17] LABS: Basophils # (auto) 0 10 ^3/uL (0-0.2); Eosinophils # (auto) 0 10 ^3/uL (0-0.8); Mean Corpuscular Hemoglobin 40.2 pg (28.0-32.0); Monocytes # (auto) 0.2 10 ^3/uL (0-1.3); Neutrophils # (auto) 1.6 10 ^3/uL (1.6-8.6)
[2020-12-13 06:21] LABS: Basophils % (auto) 0.6 % (0.0-2.0); Eosinophils % (auto) 1.2 % (0.0-7.0); Hematocrit 22.5 % (36.0-46.0); Hemoglobin 8.2 g/dL (12.2-16.2); Lymphocytes % (auto) 35.3 % (10.0-50.0); Mean Corpuscular Volume 109.9 fL (80.0-100.0); Monocytes % (auto) 7.7 % (0.0-12.0); Neutrophils % (auto) 55.2 % (37.0-80.0); Nucleated Red Blood Cells % 1.1 %; Red Blood Cells 2.05 10^6/uL (4.0-5.20); White Blood Cell 2.8 10^3/uL (4.4-10.8)
[2020-12-13 06:25] LABS: Mean Corpuscular Hgb Conc. 36.5 g/dL (32.0-36.0); Red Cell Distribution Width 30.2 % (11.8-14.3)
[2020-12-13 06:32] LABS: INR 1.14 (0.9-1.15)
[2020-12-13 06:38] LABS: Albumin 3.6 g/dL (3.4-5.0); Calcium 8.7 mg/dL (8.5-10.1); Potassium 3.8 mmol/L (3.5-5.1)
[2020-12-13 06:43] LABS: BUN/Creatinine Ratio 12.8; Bilirubin, Total 0.7 mg/dL (0.2-1.0); Total Protein 6.6 g/dL (6.4-8.2)
[2020-12-13] MEDS: BUDESONIDE (INHALATION) 0.5 MG/2 ML NEB NEB SCH ×2 (07:01→22:00)
[2020-12-13] MEDS: ALBUTEROL SULF 2.5 MG/0.5ML(0.5%) NEB SOLN NEB PRN (07:07)
[2020-12-13] MEDS: PANTOPRAZOLE 40 MG TAB PO SCH (08:49)
[2020-12-13] MEDS: AZITHROMYCIN 500MG/ 250ML 250 ML IV SCH (08:49)
[2020-12-13 09:50] VITALS: BP 142/77
[2020-12-13 12:33] VITALS: BP 141/75
[2020-12-13] MEDS ORDERED: amLODIPine BESYLATE 5 MG TAB PO ONE (13:45)
[2020-12-13] MEDS ORDERED: MORPHINE SULF INJ 2 MG/ML SYRINGE 1ML IV PRN (14:00)
[2020-12-13] MEDS: HYDROcodone-ACET 5/325MG TAB PO PRN ×2 (14:56→23:39)
[2020-12-13] MEDS: diphenhdrAMINE HCL 50 MG/1 ML VL IV PRN (16:05)
[2020-12-13] MEDS: CALCIUM CARB 500 MG CHEW TAB PO SCH ×2 (16:27→20:38)
[2020-12-13 16:43] VITALS: BP 139/66
[2020-12-13] MEDS: GABAPENTIN 300 MG CAP PO SCH ×2 (16:50→20:38)
[2020-12-13 18:07] LABS: Hemoglobin 8.7 g/dL (12.2-16.2)
[2020-12-13 18:09] LABS: Hematocrit 24.8 % (36.0-46.0)
[2020-12-13 22:00] VITALS: BP 105/60
[2020-12-13] MEDS ORDERED: ATORVASTATIN 20 MG TAB PO SCH (22:00)
[2020-12-13] MEDS: INSULIN LANTUS (GLARGINE) 1 /0.01ml (100units/ml) SC SCH (22:00)
[2020-12-14] MEDS: diphenhdrAMINE HCL 50 MG/1 ML VL IV PRN ×2 (00:25→10:14)
[2020-12-14] MEDS: ACCU-CHEK COMFORT CURVE STRIP VI SCH ×5 (04:00→16:00)
[2020-12-14] MEDS: InsuLIN REG 1unit/0.01ml Soln (100units/ml) SC SCH ×5 (04:00→16:00)
[2020-12-14 05:00] VITALS: BP 95/66
[2020-12-14] MEDS ORDERED: BUDESONIDE (INHALATION) 0.5 MG/2 ML NEB ONE (05:52)
[2020-12-14] MEDS: CALCIUM CARB 500 MG CHEW TAB PO SCH ×2 (06:17→11:30)
[2020-12-14] MEDS: PIPERACILLIN-TAZOB 2.25GM 50 ML IV SCH ×2 (06:17→12:00)
[2020-12-14] MEDS: GABAPENTIN 300 MG CAP PO SCH ×2 (06:17→14:00)
[2020-12-14 06:41] LABS: Basophils # (auto) 0 10 ^3/uL (0-0.2); Eosinophils # (auto) 0 10 ^3/uL (0-0.8); Hematocrit 23.6 % (36.0-46.0); Lymphocytes # (auto) 1.4 10 ^3/uL (0.4-5.4); Monocytes # (auto) 0.2 10 ^3/uL (0-1.3); Neutrophils # (auto) 1.5 10 ^3/uL (1.6-8.6); Nucleated Red Blood Cells % 1.1 %; Red Blood Cells 2.11 10^6/uL (4.0-5.20)
[2020-12-14 06:45] LABS: Basophils % (auto) 0.4 % (0.0-2.0); Eosinophils % (auto) 1.2 % (0.0-7.0); Hemoglobin 8.4 g/dL (12.2-16.2); Lymphocytes % (auto) 43.1 % (10.0-50.0); Mean Corpuscular Hemoglobin 39.8 pg (28.0-32.0); Mean Corpuscular Hgb Conc. 35.7 g/dL (32.0-36.0); Mean Corpuscular Volume 111.5 fL (80.0-100.0); Monocytes % (auto) 7.1 % (0.0-12.0); Neutrophils % (auto) 48.2 % (37.0-80.0); White Blood Cell 3.2 10^3/uL (4.4-10.8)
[2020-12-14 06:55] LABS: Red Cell Distribution Width 30.7 % (11.8-14.3)
[2020-12-14] MEDS ORDERED: glipiZIDE 5 MG TAB PO SCH (07:00)
[2020-12-14 07:18] LABS: Albumin 3.6 g/dL (3.4-5.0); BUN/Creatinine Ratio 13.6; Bilirubin, Total 0.8 mg/dL (0.2-1.0); Calcium 8.8 mg/dL (8.5-10.1); Total Protein 6.6 g/dL (6.4-8.2)
[2020-12-14 08:00] VITALS: BP 127/73
[2020-12-14 09:00] VITALS: BP 127/73
[2020-12-14] MEDS ORDERED: amLODIPine BESYLATE 5 MG TAB PO SCH (10:00)
[2020-12-14] MEDS ORDERED: CHOLECALCIFEROL (VITD3) 2,000 UNIT CAP/TAB PO SCH (10:00)
[2020-12-14] MEDS: BUDESONIDE (INHALATION) 0.5 MG/2 ML NEB NEB SCH (10:00)
[2020-12-14] MEDS ORDERED: hydroxyUREA 500 MG CAP PO SCH (10:00)
[2020-12-14] MEDS ORDERED: ALLOPURINOL 300 MG TAB PO SCH (10:00)
[2020-12-14] MEDS ORDERED: BENAZEPRIL HCL 10 MG TAB PO SCH (10:00)
[2020-12-14] MEDS: AZITHROMYCIN 500MG/ 250ML 250 ML IV SCH (10:11)
[2020-12-14] MEDS: PANTOPRAZOLE 40 MG TAB PO SCH (10:12)
[2020-12-14] MEDS: HYDROcodone-ACET 5/325MG TAB PO PRN (10:14)
[2020-12-14 12:33] VITALS: BP 114/72
[2020-12-14 15:18] VITALS: BP 114/72
[2020-12-14 16:51] VITALS: BP 105/63
== END 2020-12-14 16:30 | disposition home or self-care (01) | DRG 202 ==
LOC: ER 13:15 → EDBD 13:15 → TELE 14:58 → TELE-WESTW 18:36
PROVIDERS: ADMIT Family Medicine; ATTEND Internal Medicine
PROC: 30233N1 Transfusion of Nonautologous Red Blood Cells into Peripheral Vein, Percutaneous Approach (ICD-10-PCS; principal; 2020-12-12)
DX: J20.9 Acute bronchitis, unspecified (principal); N17.0 Acute kidney failure with tubular necrosis; J45.901 Unspecified asthma with (acute) exacerbation; C56.2 Malignant neoplasm of left ovary; J98.11 Atelectasis; I13.0 Hypertensive heart and chronic kidney disease with heart failure and stage 1 through stage 4 chronic kidney disease, or unspecified chronic kidney disease; D61.818 Other pancytopenia; E11.22 Type 2 diabetes mellitus with diabetic chronic kidney disease; F12.90 Cannabis use, unspecified, uncomplicated; Z20.822 Contact with and (suspected) exposure to COVID-19; F17.210 Nicotine dependence, cigarettes, uncomplicated; I50.9 Heart failure, unspecified; K21.9 Gastro-esophageal reflux disease without esophagitis; L29.9 Pruritus, unspecified; M10.9 Gout, unspecified; R55 Syncope and collapse; N18.9 Chronic kidney disease, unspecified; D64.89 Other specified anemias; J43.2 Centrilobular emphysema; Z79.01 Long term (current) use of anticoagulants; Z80.1 Family history of malignant neoplasm of trachea, bronchus and lung; Z80.3 Family history of malignant neoplasm of breast; Z80.41 Family history of malignant neoplasm of ovary; Z80.8 Family history of malignant neoplasm of other organs or systems; Z81.8 Family history of other mental and behavioral disorders; Z82.0 Family history of epilepsy and other diseases of the nervous system; Z82.3 Family history of stroke; Z82.49 Family history of ischemic heart disease and other diseases of the circulatory system; Z82.5 Family history of asthma and other chronic lower respiratory diseases; Z82.62 Family history of osteoporosis; Z83.3 Family history of diabetes mellitus; Z85.43 Personal history of malignant neoplasm of ovary; Z86.16 Personal history of COVID-19; Z86.718 Personal history of other venous thrombosis and embolism; Z90.49 Acquired absence of other specified parts of digestive tract; Z90.710 Acquired absence of both cervix and uterus; Z95.1 Presence of aortocoronary bypass graft; Z91.041 Radiographic dye allergy status
CPT/HCPCS: 36415; 36430; 71045; 80053; 82270; 82962; 83036; 83735; 84443; 84484; 85014; 85018; 85025; 85049; 85379; 85610; 86850; 86900; 86901; 86920; 87040; 87426; 93005; 93971; 94640; 96360; 96372; G0378; J1815; J2405; J2543

== ENCOUNTER 2021-09-02 20:48 | Emergency (ER) | payer OTHER, MEDICAID ==
[~2021-09-02] VITALS: Ht 167.6 cm; Wt 72.6 kg
[~2021-09-02 20:48] MED LIST changes: +ALLO300T2 PO; +BENA5TAB9 PO; +CHOL20007 PO; +DOCU100T15 PO; +HYD500C PO; +OLAP100T PO; +ONDA-144 PO; +SENN8.6C PO
[2021-09-02 22:30] LABS: Basophils # (auto) 0 10 ^3/uL (0-0.2); Basophils % (auto) 0.7 % (0.0-2.0); Eosinophils # (auto) 0.2 10 ^3/uL (0-0.8); Eosinophils % (auto) 3.5 % (0.0-7.0); Hematocrit 30.7 % (36.0-46.0); Hemoglobin 10.2 g/dL (12.2-16.2); Lymphocytes % (auto) 29.1 % (10.0-50.0); Mean Corpuscular Hemoglobin 26.2 pg (28.0-32.0); Mean Corpuscular Hgb Conc. 33.1 g/dL (32.0-36.0); Monocytes # (auto) 0.6 10 ^3/uL (0-1.3); Monocytes % (auto) 9.5 % (0.0-12.0); Neutrophils # (auto) 3.9 10 ^3/uL (1.6-8.6); Neutrophils % (auto) 57.2 % (37.0-80.0); Nucleated Red Blood Cells % 0.2 %; Red Blood Cells 3.89 10^6/uL (4.0-5.20); Red Cell Distribution Width 17.9 % (11.8-14.3); White Blood Cell 6.7 10^3/uL (4.4-10.8)
[2021-09-02 22:48] LABS: Calcium 8.9 mg/dL (8.5-10.1); Potassium 3.8 mmol/L (3.5-5.1)
[2021-09-02 22:57] LABS: Albumin 3.5 g/dL (3.4-5.0); BUN/Creatinine Ratio 8.1; Bilirubin, Total 0.3 mg/dL (0.2-1.0); Total Protein 7.1 g/dL (6.4-8.2)
[2021-09-03] MEDS ORDERED: METHOCARBAMOL 500 MG TAB PO ONE
[2021-09-03] MEDS ORDERED: HYDROcodone-ACET 5/325MG TAB PO ONE
[2021-09-03] MEDS ORDERED: diphenhdrAMINE HCL 50 MG/1 ML VL IV ONE
[2021-09-03] MEDS ORDERED: HYDR-4902 PO (05:38)
[2021-09-03 06:00] VITALS: BP 155/81
== END 2021-09-03 06:10 | disposition home or self-care (01) ==
LOC: EDBD 20:48 → ER 20:54
DX: R07.89 Other chest pain (principal); M62.830 Muscle spasm of back; F17.210 Nicotine dependence, cigarettes, uncomplicated; F12.10 Cannabis abuse, uncomplicated; I11.0 Hypertensive heart disease with heart failure; I50.9 Heart failure, unspecified; E11.9 Type 2 diabetes mellitus without complications; K21.9 Gastro-esophageal reflux disease without esophagitis; E78.5 Hyperlipidemia, unspecified; Z90.710 Acquired absence of both cervix and uterus
CPT/HCPCS: 36415; 71045; 80053; 83880; 84484; 85025; 93005; 96374; 99285; J1200

== ENCOUNTER 2021-11-26 10:11 | Emergency (ER) | payer MEDICARE, MEDICAID ==
[~2021-11-26] VITALS: Ht 160 cm; Wt 61.7 kg
[~2021-11-26 10:11] MED LIST changes: +HYDR-4902 PO
[2021-11-26 10:14] VITALS: BP 111/68
== END 2021-11-26 13:20 | disposition left against medical advice (07) ==
LOC: ER 10:11
DX: Z45.2 Encounter for adjustment and management of vascular access device (principal); Z53.21 Procedure and treatment not carried out due to patient leaving prior to being seen by health care provider